=== PATIENT | male | born 1975 | race Caucasian/White ===

== ENCOUNTER 2019-09-17 18:36 | Emergency (ER) | payer SELFPAY ==
[2019-09-17] MEDS ORDERED: ACETAMINOPHEN W/COD #3 TAB 1 EA TAB PO ONE (19:02)
--- NOTE | 2019-09-17 19:06 | ED.PDOC ---
History of Present Illness - General Chief Complaint: Lower Extremity Injury Stated Complaint: red swollen ankles, bilateral Time Seen by Provider: 09/17/19 19:00 Source: patient - History of Present Illness Initial Comments: 43 yo male who presents with cc of BL ankle pain. Reports 2 days ago at work he fell approx 5 ft off a ladder and landed on both feet on hard ground. Reports mild pain initially which has gradually worsened since onset, worsened much further today and also reports worsening redness and swelling to BL ankles since last night, R > L. Pain located throughout BL ankles and radiates into proximal dorsal feet, constant, sharp, 10/10 right, 6/10 left, worse with walking, tried ibuprofen with little relief. Reports moderate swelling on right, mild on left. Reports hx of cellulitis and is worried it is happening again. Denies fevers, chills, other sx's. Denies deformity, weakness, numbness. Home Medications: Ambulatory Orders Acetaminophen W/ Codeine [Tylenol W/ CODEINE #3] 1 ea PO Q6H PRN 10 Days #15 09/17/19 Clindamycin HCl 300 mg PO QID 10 Days #40 cap 09/17/19 Review of Systems - Review of Systems Review of Systems: 09/17/19 19:06 as per HPI All other Systems: Reviewed and Negative Past Medical History (General) - Patient Medical History Hx of COPD: Yes Hx Cardiac Disorders: Yes Hx Congestive Heart Failure: Yes Hx Diabetes: Yes Surgical History: tonsillectomy - Vaccination History Hx Tetanus, Diphtheria Vaccination: Yes Hx Influenza Vaccination: No Hx Pneumococcal Vaccination: No - Social History Hx Tobacco Use: Yes Hx Alcohol Use: No - Triage Comment ED Triage Comment: Pt reports he fell jumped off a ladder a couple days, at that time he did not have any pain. Today however both ankles swollen and red, also hot to touch. Pt believes he has celullitis, as he has had that before. Pedal pulses are palable, and do note blanching, +1 edema. Family Medical History - Family History Father Family History: Unknown Physical Exam - Physical Exam General Appearance: Alert, No apparent distress Eyes, Ears, Nose, Throat: PERRL/EOMI, normal ENT inspection Neck: non-tender, full range of motion, supple, normal inspection Cardiovascular/Respiratory: regular rate, rhythm, no M/R/G, normal peripheral pulses, no JVD, normal breath sounds Gastrointestinal/Abdominal: non-tender, no organomegaly Back: normal inspection, no vertebral tenderness Thigh/Hip: normal inspection, non-tender, no evidence of injury, normal ROM Leg: normal inspection, non-tender, no evidence of injury, normal ROM Knee: normal inspection, non-tender, no evidence of injury, normal ROM Ankle: limited ROM - moderately limited all directions BL, swelling - moderate on right, mild on left, other - moderate redness and warmth approx 8x6 cm area on right, 3x4 cm area on left anterior ankles Foot: normal ROM, swelling - mild to right foot Neuro/Tendon: normal sensation, normal motor functions Mental Status: alert, oriented x 3 Skin: warm/dry Progress - Progress Progress: 09/17/19 19:08 BL ankle pain & redness -consider frx vs cellulitis vs both vs sprain vs other -afebrile, vitals wnl -obtain CBC, BMP, XR BL ankles, XR R foot -cold pack and Tylenol #3 for pain 09/17/19 20:23 -XR R ankle reveals a very faint tiny opacity near distal right fibula questionable for tiny avulsion frx of distal right fibula. Otherwise no acute processes or fractures seen on XR imaging. Labwork largely unremarkable, WBC wnl. Pt remains stable, pain improved. -advised walking boot for 4-6 weeks to right LE for possible distal fibular frx. Can f/u with PCP in 1-2 weeks to discuss earlier removal of boot. -for cellulitis will treat with Rocephin 2 g IM here and clindamycin 300 mg QID x10 days -dc home in good condition, return warnings discussed Stevenson Lindsey MD Billing #[id number] Departure - Departure Clinical Impression: Cellulitis of lower leg Closed right fibular fracture Qualifiers: Encounter type: initial encounter Fibula location: distal Fracture morphology: other fracture Qualified Code(s): S82.831A - Other fracture of upper and lower end of right fibula, initial encounter for closed fracture Time of Disposition: 20:26 Disposition: Discharge to Home or Self Care Condition: Fair Departure Forms: ED Discharge - Pt. Copy, Patient Portal Self Enrollment Instructions: Fibula Fracture (DC), Cellulitis (Skin Infection), Adult (DC) Activity: other - walking boot to right lower extremity for 4-6 weeks Prescriptions: Acetaminophen W/ Codeine [Tylenol W/ CODEINE #3] 1 ea PO Q6H PRN 10 Days #15 PRN Reason: Pain Clindamycin HCl 300 mg PO QID 10 Days #40 cap Home Medications: Ambulatory Orders Acetaminophen W/ Codeine [Tylenol W/ CODEINE #3] 1 ea PO Q6H PRN 10 Days #15 09/17/19 Clindamycin HCl 300 mg PO QID 10 Days #40 cap 09/17/19
--- NOTE | 2019-09-17 19:33 | RAD ---
EXAM DESCRIPTION: Ankle,Left 3 Views CLINICAL HISTORY: 43 years Male fall off ladder 5 feet 2 days ago, BL ankle pain COMPARISON: None TECHNIQUE: Three images of the left ankle were obtained. FINDINGS: No acute fracture seen. Medial soft tissue swelling. Degenerative spurring medial and lateral malleolar regions. No acute fracture noted. Normal bony mineralization. No erosive or lytic lesions seen. IMPRESSION: No acute fracture or dislocation seen. Medial soft tissue swelling. Degenerative changes. Electronically signed by: Casandra Kapoor MD 09/17/2019 7:31 PM CDT
--- NOTE | 2019-09-17 19:33 | RAD ---
EXAM: Ankle,Right 3 Views (accession [id number]), Foot,Right 3 Views (accession [id number]) CLINICAL INDICATION: Right ankle and foot pain COMPARISON: There is no previous study for comparison. FINDINGS: 3 views of the right ankle and 3 views of the right foot reveal lateral soft tissue swelling about the ankle consistent with sprain. There is a faint small ossicle distal to the tip of the lateral malleolus which may represent a tiny avulsion fracture fragment located 2.8 mm below the lateral malleolus. Otherwise no fracture or dislocation is seen. Structures of the foot appear unremarkable. IMPRESSION: Faint tiny bony structure suggesting a chip fracture of the tip of the distal fibula. Lateral soft tissue swelling. Electronically signed by: Zachariah Garcia MD 09/17/2019 7:31 PM CDT
--- NOTE | 2019-09-17 19:33 | RAD ---
EXAM: Ankle,Right 3 Views (accession [id number]), Foot,Right 3 Views (accession [id number]) CLINICAL INDICATION: Right ankle and foot pain COMPARISON: There is no previous study for comparison. FINDINGS: 3 views of the right ankle and 3 views of the right foot reveal lateral soft tissue swelling about the ankle consistent with sprain. There is a faint small ossicle distal to the tip of the lateral malleolus which may represent a tiny avulsion fracture fragment located 2.8 mm below the lateral malleolus. Otherwise no fracture or dislocation is seen. Structures of the foot appear unremarkable. IMPRESSION: Faint tiny bony structure suggesting a chip fracture of the tip of the distal fibula. Lateral soft tissue swelling. Electronically signed by: Zachariah Garcia MD 09/17/2019 7:31 PM CDT
[2019-09-17 19:52] VITALS: O2SAT 100
[2019-09-17] MEDS ORDERED: LIDOCAINE 1% 2 ML VIAL INJ ONE ×2 (20:07→20:08)
[2019-09-17 20:22] VITALS: BP 123/77
[2019-09-17 20:52] VITALS: TEMP 97.8
== END 2019-09-17 20:45 | disposition home or self-care (01) ==
LOC: ER 18:36
DX: S82.831A Other fracture of upper and lower end of right fibula, initial encounter for closed fracture (principal); L03.119 Cellulitis of unspecified part of limb; J44.9 Chronic obstructive pulmonary disease, unspecified; E11.9 Type 2 diabetes mellitus without complications; I50.9 Heart failure, unspecified; Z87.891 Personal history of nicotine dependence; W11.XXXA Fall on and from ladder, initial encounter; Y92.9 Unspecified place or not applicable
CPT/HCPCS: 73610; 73630; 80048; 85025; J0696